=== PATIENT | female | born 1975 | race Caucasian/White ===

== ENCOUNTER 2024-05-14 23:56 | Emergency (ER) | payer MEDICAID ==
[~2024-05-14] VITALS: Ht 162.6 cm; Wt 75.0 kg
[2024-05-14] MEDS ORDERED: MAGNESIUM/ALUMINUM HYDROXIDE/SIMETHICONE 30ML UDC PO STA (23:58)
[2024-05-14] MEDS ORDERED: ONDANSETRON HCL 4MG/2ML INJ IV STA (23:58)
[2024-05-14] MEDS ORDERED: PANTOPRAZOLE SODIUM 40 MG/VIAL IV STA (23:58)
[2024-05-15] MEDS ORDERED: ACETAMINOPHEN 1000MG/100ML 100 ML IV ONE
[2024-05-15] MEDS: SODIUM CHLORIDE 0.9% 1,000 ML IV ONE
[2024-05-15 00:03] VITALS: O2SAT 100
[2024-05-15 00:21] LABS: BASOPHILS % 0.7 % (0.0-2.0); EOSINOPHILS % 2.2 % (0.0-5.0); HEMATOCRIT. 36.7 % (36.0-48.0); LYMPHOCYTES % 12.2 % (20.0-50.0); MEAN CORPUSCULAR HEMOGLOBIN 27.5 pg (28.0-32.0); MEAN CORPUSCULAR HGB CONC 32.6 g/dL (31.0-37.0); MEAN CORPUSCULAR VOLUME 84.1 fL (81.0-99.0); MEAN PLATELET VOLUME 7.7 fl (7.4-10.4); MONOCYTES % 4.1 % (2.0-8.0); NEUTROPHILS % 80.8 % (40.0-76.0); PLATELET 356 x1000/uL (130-400); RED BLOOD CELL COUNT 4.36 mill/uL (4.2-5.4); RED CELL DISTRIBUTION WIDTH 16.7 % (11.6-14.6); WHITE BLOOD COUNT 11.1 x1000/uL (4.5-11.0)
[2024-05-15 00:26] LABS: CHLORIDE 106 mEq/L (98-107); POTASSIUM 3.5 mEq/L (3.5-5.1); SODIUM 140 mEq/L (136-145)
[2024-05-15 00:27] LABS: CALCIUM 9.7 mg/dL (8.7-10.4); CARBON DIOXIDE 29 mEq/L (21-32)
[2024-05-15 00:30] LABS: PROTHROMBIN TIME 10.9 sec (9.6-11.0)
[2024-05-15 00:32] LABS: CREATININE 0.9 mg/dL (0.6-1.0); GLUCOSE 104 mg/dL (70-105); UREA NITROGEN BLOOD 15 mg/dL (9-23)
[2024-05-15] MEDS: PANTOPRAZOLE SODIUM 40 MG/VIAL IV NR (00:45)
[2024-05-15] MEDS: ONDANSETRON HCL 4MG/2ML INJ IV NR (00:45)
[2024-05-15 02:53] LABS: ALANINE AMINOTRANSFERASE 14 IU/L (10-49); ALBUMIN 4.3 g/dL (3.2-4.8); ASPARTATE AMINOTRANSFERASE 17 IU/L (<34); BILIRUBIN TOTAL 0.3 mg/dL (0.1-1.0); PROTEIN TOTAL 7.5 g/dL (6.0-8.3)
[2024-05-15 03:00] LABS: BILIRUBIN DIRECT < 0.1 mg/dL (<=3.0); ETHANOL BLOOD < 10 mg/dL (<10)
[2024-05-15] MEDS ORDERED: ACET-2708 MT (04:09)
[2024-05-15] MEDS ORDERED: ONDA4TAB50 MT (04:09)
[2024-05-15] MEDS ORDERED: MAG355OR21 MT (04:09)
[2024-05-15] MEDS ORDERED: PROT40 MT (04:09)
[2024-05-15 05:00] VITALS: BP 138/85; PULSE 79; RESP 17; TEMP 36.66960; O2SAT 100
[2024-05-15] MEDS: ONDANSETRON 4MG ODT PO ONE (05:00)
[2024-05-15] MEDS: MAGNESIUM/ALUMINUM HYDROXIDE/SIMETHICONE 30ML UDC PO NR (05:00)
== END 2024-05-15 05:50 | disposition home or self-care (01) ==
LOC: ER 05-15 00:03
DX: A08.4 Viral intestinal infection, unspecified (principal); Z79.899 Other long term (current) drug therapy
CPT/HCPCS: 76705; 93005; 80076; 80048; 80320; 83690; 85025; 85610; 36415; 99284; Q0162; J2405; J7030; G0480; J0131